=== PATIENT | female | born 1940 | race Caucasian/White ===

== ENCOUNTER 2019-10-20 12:54 | Emergency (ER) | payer MEDICARE, SELFPAY ==
[2019-10-20 12:55] VITALS: BP 144/84; PULSE 105; RESP 16; TEMP 36.5; O2SAT 98; BMI 20.7
--- NOTE | 2019-10-20 14:17 | RAD_ITS ---
STUDY: X-RAY - LEFT FOOT CLINICAL: Female, 79 years old. Fall, pain, bruising, swelling. TECHNIQUE: 3 view(s) of the foot. COMPARISON: None. FINDINGS: Normal talus, calcaneus, and tarsal bones. Normal visualized subtalar, talonavicular, calcaneocuboid, tarsal and tarsometatarsal articulations. There is demineralization of the metatarsi. There is degenerative arthrosis of the metatarsophalangeal joint of the hallux . Normal tibial and fibular sesamoid bones. Normal interphalangeal joint of the great toe. Normal phalanges of the great toe. Normal second through fifth metatarsophalangeal joints. Normal interphalangeal joints and phalanges of the lesser toes. The soft tissue structures are unremarkable. RAD/Foot min 3 Views IMPRESSION: No acute abnormality is seen. Electronically Signed: Jean-Claude Pascal, at 14:59 EST , Service support ,
--- NOTE | 2019-10-20 14:17 | RAD_ITS ---
STUDY: X-RAY - LEFT ANKLE REASON FOR EXAM: Female, 79 years old. Fall, pain, bruising, swelling. TECHNIQUE: 3 view(s) of the ankle. COMPARISON: None. FINDINGS: Normal visualized distal tibia and fibula. Normal medial and lateral malleoli. Normal tibiotalar articulation and ankle mortise. Normal visualized talus and calcaneus. The visualized subtalar, talonavicular, calcaneocuboid and tarsal articulations are normal. Soft tissue swelling. RAD/Ankle min 3 Views IMPRESSION: Soft tissue swelling. Electronically Signed: Jean-Claude Pascal, at 14:53 EST , Service support ,
--- NOTE | 2019-10-20 15:20 | ED.DCSUM_ITS ---
- ER Visit Summary Date of Service: 10/20/19 Chief Complaint: Left foot pain History of Present Illness: The patient is a 79 F who presents with left foot pain that began last night. Patient states she accidentally kicked a chair. Patient states that chair fell onto her left foot and caused her to fall. Patient states she has pain over the lateral aspect of the left foot and left ankle. Patient states the pain is worse with any movement or weightbearing. Patient describes the pain as aching and burning. Patient admits to some tingling in her toes when she moves her toes. Patient denies any other injuries. Physical Examination: Vital signs are stable. Patient is afebrile. Patient is in no acute distress. Musculoskeletal exam reveals tenderness, edema, and ecchymosis over the lateral aspect of the left foot and over the tip of the lateral malleolus. There is no bony crepitance or step-off. Range of motion was limited in all motions of the left foot secondary to pain. There is no laxity appreciated. Pedal pulses are equal bilaterally. Capillary refill was less than 2 seconds in all digits. Sensation was intact to light touch in all digits. Test Results: X-rays of the left foot and left ankle were obtained. There is no acute fracture. These were interpreted by the radiologist and myself. Emergency Department Course and Treatment: Patient was given a postop shoe. Patient was instructed to ice and elevate the left foot. Patient was instructed to take [id number] Tylenol or Motrin as needed for pain. Patient was instructed to follow-up with her primary care physician in 5 to 7 days. Patient understood and was agreeable with the plan. All questions were answered. Disposition: Discharge home Impression: Left foot contusion This note was generated with [employer] dictation software. It may contain incorrect words, spelling, and punctuation that were not noted in review of the chart prior to signing ED Disposition - Plan for ED Patient: Disposition: Home or Assisted Living Diagnosis: Contusion of left foot Instructions: CONTUSION, Foot Referrals: Jameson Jerez MD [Primary Care Provider] - 5-7 Days
[2019-10-20 15:43] VITALS: RESP 18
== END 2019-10-20 15:45 | disposition home or self-care (01) ==
PROVIDERS: Emergency Provider Emergency Medicine; PCP Family Medicine
DX: S90.32XA Contusion of left foot, initial encounter (principal); W20.8XXA Other cause of strike by thrown, projected or falling object, initial encounter; W22.03XA Walked into furniture, initial encounter; R05 Cough; C34.90 Malignant neoplasm of unspecified part of unspecified bronchus or lung; C79.31 Secondary malignant neoplasm of brain
CPT/HCPCS: 73610; 73630; 99283

== ENCOUNTER 2020-09-20 12:41 | Outpatient (RCR) | payer MEDICARE, SELFPAY | END 2020-09-20 23:59 | LOC: IMMUN 12:41 | PROVIDERS: PCP Family Medicine; Referring Provider Family Medicine; Visit Provider Family Medicine | DX: Z23 Encounter for immunization (principal) | CPT/HCPCS: 0011A; 0012A ==

== ENCOUNTER → 2021-01-07 07:26 | Outpatient (CLI) | payer MEDICARE, SELFPAY ==
[2021-01-07] VITALS (8 sets, daily range): BP systolic 125–148; BP diastolic 61–89; PULSE 96–101; RESP 16; TEMP 35.7–36.3; O2SAT 98–100; BMI 16.8
[2021-01-07] MEDS: 0.9% NaCl Peripheral Flush Adult/Peds IV (08:08)
== END ==
PROVIDERS: PCP Family Medicine; Referring Provider Internal Medicine Hematology & Oncology; Visit Provider Internal Medicine Hematology & Oncology
DX: D61.818 Other pancytopenia (principal)
CPT/HCPCS: 36430; 86644; 86850; 86900; 86901; 86920; 86922; J7040; P9016; A4216

== ENCOUNTER 2021-02-05 15:54 | Emergency (ER) | payer MEDICARE, SELFPAY ==
[2021-01-07 07:47] VITALS: BMI 16.8
[2021-02-05 15:55] VITALS: BP 162/107; PULSE 107; RESP 16; TEMP 36.3; O2SAT 97; BMI 17.2
[2021-02-05 15:58] VITALS: BP 162/107; PULSE 107; RESP 16; TEMP 36.3; O2SAT 97
--- NOTE | 2021-02-05 16:13 | EKG12_ITS ---
Test Reason : ABD. PAIN Blood Pressure : / mmHG Vent. Rate : 098 BPM Atrial Rate : 098 BPM P-R Int : 124 ms QRS Dur : 080 ms QT Int : 294 ms P-R-T Axes : 054 014 105 degrees QTc Int : 375 ms Sinus rhythm with Premature atrial complexes Anterior infarct , age undetermined Abnormal ECG Confirmed by JOSE MANUEL TODD, NATALY ([id number]), map editor PALOMO SINGH ([id number]) on 02/07/2021 8:39:00 AM Referred By: PATSY Confirmed By:NATALY RICHARD MD
--- NOTE | 2021-02-05 16:15 | EDS_ITS ---
HPI History of Present Illness Chief Complaint: Abd Pain Narrative Narrative: Patient presents with epigastric and left upper quadrant abdominal pain for the past few days. She has a history of stage IV lung cancer, she also has generalized weakness and she is not able to walk as much is normal. 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 She has no urinary symptoms. No recent fever or chills. She did not eat today but she did drink water. She has not had a bowel movement in about 4 days despite some stool softeners. [facility] Medical History (Updated 02/05/21 @ 18:[address] Ramakrishna Cheng MD) HTN (hypertension) Hypothyroid Lung cancer Home Medications gabapentin 400 mg PO TID 08/07/13 [History Last Taken 08/20/17 20:00] potassium chloride [Klor-Con M20] 20 meq PO TID 08/07/13 [History Last Taken 08/20/17 20:00] promethazine 25 mg PO Q8H PRN PRN 08/07/13 [History Last Taken Unknown] verapamil 240 mg PO DAILY 08/07/13 [History Last Taken 08/20/17 20:00] folic acid 1 mg PO DAILY 08/23/17 [History Last Taken Unknown] osimertinib 40 mg PO DAILY 10/20/19 [History Last Taken Unknown] oxycodone-acetaminophen [Percocet] 1 tab PO Q8H PRN 3 Days #10 tab 02/05/21 [Rx Last Taken Unknown] potassium chloride 20 meq PO BID #10 tab 02/05/21 [Rx Last Taken Unknown] Allergy/AdvReac Type Severity Reaction Status Date / Time levofloxacin [From Levaquin] Allergy Other Verified 02/05/21 15:57 omeprazole [From Prilosec] Allergy Itching Verified 02/05/21 15:57 omeprazole magnesium Allergy Itching Verified 02/05/21 15:57 [From Prilosec] Iafbodv-Xbb-Uum Reductase Allergy Other Verified 02/05/21 15:57 Inhibitor Social History Smoking Status: Never smoker ROS ROS ED ROS Narrative Past medical history: Reviewed, includes lung cancer, hypertension, GERD, hypercholesterolemia, osteoporosis, hypothyroidism Medications: Reviewed in the medical record including the [facility] medical record which was faxed to us Social history: Lives with and son Review of systems: All systems negative except as indicated General: No fever. Generalized weakness as in HPI Eyes: No visual changes ENT: No upper airway congestion, normal voice Neck: No neck pain Cardiovascular: No chest pain Respiratory: No shortness of breath or cough Gastrointestinal: Abdominal pain as in HPI. Constipation as in HPI Genitourinary: No dysuria Musculoskeletal: Denies myalgias. Skin: No rash, she thinks she is slightly more pale than normal Neurological: No memory loss, confusion or any focal weakness Psych: No recent behavioral changes Hematologic: Has a history of pancytopenia but no recent easy bleeding. EXAM Physical Exam Narrative Exam Narrative: Physical exam General: Patient appears chronically ill. Head: Normocephalic, Atraumatic, alopecia with the way Eyes: Conjunctiva not pale ENT: Slightly dry mucous membranes Neck: Supple, Nontender, No lymphadenopathy Cardiovascular: Regular rate, Regular rhythm Respiratory: No distress, speaks in full sentences coarse bilateral breath sounds Abdomen: Soft, there is epigastric and left upper quadrant abdominal pain. No mass palpated. No lower abdominal pain. No right upper quadrant pain. No guarding or rebound Back: Nontender, Normal Inspection. Negative for: CVA tenderness Extremities: Nontender, No edema Skin: Slight pallor Neurological: Alert, Normal Strength, Normal Sensation Psychological: Normal affect Const Vital Signs: 02/05/21 15:55 02/05/21 15:58 02/05/21 17:43 Temperature 97.4 F L 97.4 F L 98.3 F Temperature Source Temporal Temporal Temporal Pulse Rate 107 H 107 H 98 Respiratory Rate 16 16 24 H Blood Pressure 162/107 H 162/107 H 127/90 H Blood Pressure Mean 125 125 102 Pulse Ox 97 97 90 Oxygen Delivery Method Room Air Room Air Room Air Oxygen Flow Rate (L/min) 02/05/21 17:46 Temperature Temperature Source Pulse Rate Respiratory Rate Blood Pressure Blood Pressure Mean Pulse Ox 96 Oxygen Delivery Method Nasal Cannula Oxygen Flow Rate (L/min) 2 MDM MDM MDM Narrative Medical decision making narrative: Patient's work-up is consistent with metastatic disease, her pain improved. She is found to be hypokalemic, I gave her potassium in the ED and I will give her potassium for home otherwise I will discharge her in stable condition. I talked to her about her ability to cope at home she still has her and her son who can care for her, I told her there are options if she can no longer thrive in a home situation. She understands this. I also talked to her niece was at the bedside. Lab Data Labs: Laboratory Results - last 24 hr 02/05/21 02/05/21 16:09 16:09 WBC 10.1 RBC 4.52 Hgb 13.2 Hct 40.9 MCV 90.5 MCH 29.2 MCHC 32.3 RDW Std Deviation 48.0 H RDW Coeff of Aman 14.6 Plt Count 271 MPV 9.4 Immature Gran % (Auto) 0.500 Neut % (Auto) 86.0 H Lymph % (Auto) 5.1 L Cannon % (Auto) 7.8 Eos % (Auto) 0.2 Baso % (Auto) 0.4 Absolute Neuts (auto) 8.7 H Absolute Lymphs (auto) 0.51 L Nucleated RBC % 0 Differential Comment Platelet Estimate ADEQUATE RBC Morphology NORM C+C Sodium 134 L Potassium 2.8 L Chloride 90 L Carbon Dioxide 35.0 H Anion Gap 9 BUN 17 Creatinine 0.84 Estim Creat Clear Calc 35.95 Est GFR (MDRD) Af Amer 84 Est GFR (MDRD) Non-Af 69 BUN/Creatinine Ratio 20.2 H Glucose 114 H Calcium 10.0 Total Bilirubin 0.40 AST 20 ALT 13 Alkaline Phosphatase 134 H Total Protein 7.4 Albumin 2.9 L Globulin 4.5 H Albumin/Globulin Ratio 0.6 L Radiography Diagnostic Testing: Radiology Impression Abdomen/Pelvis CT 02/05/21 16:55 IMPRESSION: 1. Extensive left hemithorax disease, postsurgical changes, possibly loculated left pleural effusion versus lesions etc. 2. No acute abdominal findings. 3. Left hepatic lobe biliary dilation, refer to further biliary specific imaging such as CT liver with IV contrast, MR, etc. 4. Hepatic lesions, incompletely characterized, these can be further assessed at the time of hepatic imaging. Most probably metastases. Electronically Signed: Emmie Soria MD at 17:35 EDT Tel , Service support , Discharge Plan Triage Chief Complaint: Abd Pain ED Provider: Ramakrishna Cheng Dx/Rx/DC Orders Clinical Impression: Abdominal pain Instructions: ED Abdominal Pain Unkn Cause Fem Prescriptions: New oxycodone-acetaminophen [Percocet] 5-325 mg tablet 1 tab PO Q8H PRN (Reason: pain) 3 Days Qty: 10 RF: 0 potassium chloride 20 mEq tablet extended release 20 meq PO BID Qty: 10 RF: 0 No Action gabapentin 400 MG capsule 400 mg PO TID RF: 0 potassium chloride [Klor-Con M20] 20 MEQ tablet 20 meq PO TID RF: 0 promethazine 25 MG tablet 25 mg PO Q8H PRN PRN (Reason: Nausea) RF: 0 verapamil 240 MG tablet extended release 240 mg PO DAILY RF: 0 folic acid 1 MG tablet 1 mg PO DAILY RF: 0 osimertinib 40 mg tablet 40 mg PO DAILY RF: 0 Primary Care Provider: Jameson Jerez Referrals: Jameson Jerez MD [Primary Care Provider] - 2 Days Disposition Disposition: Home, self care
[2021-02-05] MEDS: Ondansetron 4 MG/2 ML Vial IV (16:30)
[2021-02-05] MEDS: Morphine 2 MG/ML Syringe IV (16:30)
[2021-02-05 16:31] LABS: Absolute Lymphocyte Count 0.51 X10^3/uL (0.83-4.51); Absolute Neutrophil Count 8.7 X10^3/uL (2.0-7.7); Basophil# 0.04 X10^3/uL; Basophil% 0.4 % (0-1); Eosinophil# 0.02 X10^3/uL; Eosinophils% 0.2 % (0-5); Hematocrit 40.9 % (37-47); Hemoglobin 13.2 g/dL (12.0-15.0); Lymphocyte # 0.51 X10^3/ul (0.83-4.51); Lymphocyte % 5.1 % (19-41); Mean Corp Hgb Conc 32.3 g/dL (32-36); Mean Corpuscular Hgb 29.2 pg (27.0-32.0); Mean Corpuscular Volume 90.5 fL (81-99); Mean Platelet Vol. 9.4 fl (6.2-12.0); Monocyte# 0.78 X10^3/uL; Monocyte% 7.8 % (0-10); NRBC Flagged by Analyzer 0 % (0-5); Neutrophil # 8.65 X10^3/uL (2.7-7.7); POSITIVE DIFFERENTIAL YES; Platelet Count 271 K/mm3 (150-450); RBC Distribution Width CV 14.6 % (11.6-14.6); Red Blood Count 4.52 M/mm3 (4.2-5.4); White Blood Count 10.1 K/mm3 (4.4-11.0)
[2021-02-05 16:36] LABS: Differential Indicated SCAN CRITERIA MET
[2021-02-05 16:41] LABS: ALB/GLOB Ratio 0.6 RATIO (0.9-2.4); AST(SGOT) 20 U/L (15-37); Alanine Aminotransfer ALT/SGPT 13 U/L (13-56); Albumin, Serum 2.9 g/dL (3.2-5.0); Alkaline Phosphatase 134 U/L (45-117); Anion Gap 9 (5-15); BUN 17 mg/dL (7-18); BUN/Creat Ratio 20.2 RATIO (10-20); Chloride 90 mmol/L (98-107); Creatinine, Serum 0.84 mg/dL (0.55-1.02); EST Glomerular Filtration Rate 69 mL/min (>60); Est Glom Filt Rate - Afr Amer 84 mL/min (>60); Estimated Creatinine Clearance 35.95 ml/min; Globulin 4.5 g/dL (2.2-4.2); Glucose 114 mg/dL (74-106); Potassium 2.8 mmol/L (3.5-5.1); Protein, Total 7.4 g/dL (6.4-8.2); Sodium Level 134 mmol/L (136-145)
--- NOTE | 2021-02-05 16:55 | CT_ITS ---
STUDY: CT ABDOMEN AND PELVIS WITHOUT CONTRAST REASON FOR EXAM: Female, 80 years old. Abdominal pain RADIATION DOSAGE (If Supplied By Facility): CTDIvol = ( 6.04 ) mGy, DLP = ( 333.75 ) mGycm TECHNIQUE: Transaxial images were obtained from the dome of the diaphragm to the symphysis pubis without oral contrast, and without intravenous contrast. Sagittal and coronal images were reconstructed. Individualized dose optimization techniques were used for this CT. COMPARISON: None. FINDINGS: Examination is limited due to lack of IV contrast. Diagnostic information is available. Assessment for neoplastic/metastatic and vascular disease is limited. There are extensive changes in the left lung with pleural effusion and/or pleural lesions and atelectasis. There are small bilateral pleural effusions. Right lung is atelectatic. There are possibly postradiation changes in the left chest wall and breast. There is moderate pericardial effusion. Gallbladder is removed. There are multiple hypodense hepatic lesions.. There is moderate intrahepatic biliary dilation in the left hepatic lobe and in the extrahepatic common bile duct, incompletely characterized. Spleen and pancreas are normal. Pancreatic head is suboptimally visualized. Adrenals are normal. There is no hydronephrosis. There is a 2 mm left renal upper pole calyceal nonobstructing stone. Bladder is normal. Uterus is not well seen, either resected or involuted. There is no intestinal obstruction. Osseous structures are intact. CT/Abdomen/Pelvis without Cont IMPRESSION: 1. Extensive left hemithorax disease, postsurgical changes, possibly loculated left pleural effusion versus lesions etc. 2. No acute abdominal findings. 3. Left hepatic lobe biliary dilation, refer to further biliary specific imaging such as CT liver with IV contrast, MR, etc. 4. Hepatic lesions, incompletely characterized, these can be further assessed at the time of hepatic imaging. Most probably metastases. Electronically Signed: Emmie Soria MD at 17:35 EDT Tel , Service support ,
[2021-02-05 17:06] LABS: Platelet Estimate ADEQUATE (ADEQ); Red Cell Morphology NORM C+C NORMAL (NORM C&C)
[2021-02-05] MEDS: Morphine 4 MG/ML Syringe IV (17:39)
[2021-02-05 17:43] VITALS: BP 127/90; PULSE 98; RESP 24; TEMP 36.8; O2SAT 90
[2021-02-05 17:46] VITALS: O2SAT 89; O2SAT 96
[2021-02-05] MEDS: Potassium Chloride Oral Soln 20 MEQ/15 ML UDC 40 MEQ PO (17:49)
[2021-02-05] MEDS: Mag Hydrox/Al Hydrox/Simeth 30 ML UDC PO (17:59)
[2021-02-05 18:43] VITALS: BP 146/88; PULSE 101; RESP 24; O2SAT 100
== END 2021-02-05 18:53 | disposition home or self-care (01) ==
PROVIDERS: Emergency Provider Emergency Medicine; PCP Family Medicine
DX: R10.12 Left upper quadrant pain (principal); K76.9 Liver disease, unspecified; E87.6 Hypokalemia; E78.00 Pure hypercholesterolemia, unspecified; K21.9 Gastro-esophageal reflux disease without esophagitis; E03.9 Hypothyroidism, unspecified; M81.0 Age-related osteoporosis without current pathological fracture; C34.90 Malignant neoplasm of unspecified part of unspecified bronchus or lung; I10 Essential (primary) hypertension
CPT/HCPCS: 74176; 80053; 85025; 93005; 96374; 96375; 96376; 99283; J7040; A4216; J2405

== ENCOUNTER 2021-02-09 13:56 | Emergency (ER) | payer MEDICARE, SELFPAY ==
[2021-02-09] VITALS (11 sets, daily range): BP systolic 163–202; BP diastolic 105–130; PULSE 98–110; RESP 22–34; TEMP 36.2–37.3; O2SAT 92–96; BMI 17.9
--- NOTE | 2021-02-09 14:20 | CT_ITS ---
STUDY: CT ABDOMEN AND PELVIS WITH CONTRAST REASON FOR EXAM: Female, 80 years old. No BM for 1 week, worsening LUQ pain from prior CT -- IV PO Contrast RADIATION DOSAGE (If Supplied By Facility): CTDIvol = ( 9.63 ) mGy, DLP = ( 466.70 ) mGycm TECHNIQUE: Transaxial images were obtained from the dome of the diaphragm to the symphysis pubis with oral contrast. IV 75mL [id number]-[id number] was administered. Sagittal and coronal images were reconstructed. Individualized dose optimization techniques were used for this CT. COMPARISON: 02/05/2021 FINDINGS: Base of the chest described on chest CT, performed concurrently. Multiple low-density cystic lesions of the liver are unchanged and are visible on prior CT of 2017, favoring benign simple cysts. Gallbladder is surgically absent. Biliary dilation is similar since the prior study, however, degree of dilation has increased since [address] Normal spleen. Normal pancreas. Normal bilateral adrenal glands. No hydronephrosis. Nonobstructing left renal calculus. Normal visualized stomach. Normal small intestine. Moderate fecal retention throughout the colon without colon wall thickening. There is non-visualization of the appendix. There is diffuse atherosclerotic calcification of the abdominal aorta, without a demonstrated aneurysm. Normal inferior vena cava. Normal retroperitoneum. Mildly distended urinary bladder. There is atrophy of the uterus. There is a small umbilical hernia containing fat. No destructive bony process. CT/Abdomen/Pelvis WITH Contrast IMPRESSION: 1. Similar intrahepatic and extrahepatic bile duct dilation (but increased since 2017). Recommend correlating with laboratory/bilirubin values. MRCP recommended if clinically appropriate to exclude a distal/ampullary biliary obstruction. 2. Moderate fecal retention. Electronically Signed: Kurtis Bush MD ([place]) at 17:07 EDT , Service support ,
--- NOTE | 2021-02-09 14:24 | EX.ED.DYSGE1 ---
HPI History of Present Illness Chief Complaint: General Illness Informant: patient and family Narrative Narrative: Patient is a 80-year-old female with a past medical history of lung cancer with metastasis who presents to the emerge part for left upper quadrant abdominal pain and constipation. She has been feeling generally weak. She was seen for the same complaint a few days prior. Patient has been taking medications to help her move her bowels but still has not. Her last bowel movement was 1 week ago. She states she has still been passing gas. She denies any nausea or vomiting. No fevers or chills. She does have some left-sided chest pain as well. She is actually supposed to start gamma knife therapy this coming Wednesday. She was previously on chemo. She denies any urinary symptoms. The family at bedside states she has not been eating or drinking very well but the patient believes she has been. [facility] Medical History (Updated 02/09/21 @ 20:[address] Thom Buenrostro, ) HTN (hypertension) Hypothyroid Lung cancer Home Medications gabapentin 200 mg PO TID 08/07/13 [History Last Taken 08/20/17 20:00] potassium chloride [Klor-Con M20] 20 meq PO TID 08/07/13 [History Last Taken 08/20/17 20:00] promethazine 25 mg PO Q8H PRN PRN 08/07/13 [History Last Taken Unknown] verapamil 240 mg PO DAILY 08/07/13 [History Last Taken 08/20/17 20:00] osimertinib 40 mg PO DAILY 10/20/19 [History Last Taken Unknown] oxycodone-acetaminophen [Percocet] 1 tab PO Q8H PRN 3 Days #10 tab 02/05/21 [Rx Last Taken Unknown] sennosides-docusate sodium [Stimulant Laxative Plus] PO BID PRN 02/09/21 [History Last Taken Unknown] Allergy/AdvReac Type Severity Reaction Status Date / Time levofloxacin [From Levaquin] Allergy Other Verified 02/05/21 15:57 omeprazole [From Prilosec] Allergy Itching Verified 02/05/21 15:57 omeprazole magnesium Allergy Itching Verified 02/05/21 15:57 [From Prilosec] Bxvwqfe-Hgd-Vat Reductase Allergy Other Verified 02/05/21 15:57 Inhibitor Social History Smoking Status: Never smoker ROS ROS ED Constitutional Constitutional ED: Reports other Details: Generalized weakness ; Denies chills or fever(s) Eyes Eyes: Denies change in vision ENT ENT ED: Denies epistaxis or rhinorrhea Cardiovascular Cardiovascular: Reports chest pain; Denies palpitations Respiratory/Chest Respiratory/Chest: Reports dyspnea; Denies cough Gastrointestinal Gastrointestinal: Reports abdominal pain and constipation; Denies diarrhea, melena, nausea or vomiting Genitourinary Genitourinary ED: Denies dysuria, hematuria or urinary frequency Musculoskeletal Musculoskeletal: Reports back pain; Denies neck pain Integumentary Denies rash Neurologic Neurologic: Denies dizziness, headache(s) or weakness EXAM Physical Exam Const Vital Signs: 02/09/21 13:58 02/09/21 14:02 02/09/21 15:02 Temperature 99.1 F 99.1 F 97.6 F L Temperature Source Temporal Temporal Temporal Pulse Rate 110 H 110 H 98 Respiratory Rate 22 H 22 H 27 H Blood Pressure 163/117 H 163/117 H 202/118 H Blood Pressure Mean 132 132 146 Pulse Ox 95 95 94 Oxygen Delivery Method Room Air Room Air 02/09/21 15:09 02/09/21 16:23 02/09/21 17:00 Temperature 97.8 F 98.1 F Temperature Source Oral Temporal Pulse Rate 102 H 99 103 H Respiratory Rate 28 H 25 H 22 H Blood Pressure 192/112 H 175/113 H 189/130 H Blood Pressure Mean 138 133 149 Pulse Ox 96 95 96 Oxygen Delivery Method Room Air 02/09/21 18:00 02/09/21 19:00 02/09/21 20:00 Temperature 97.8 F 97.1 F L Temperature Source Temporal Temporal Pulse Rate 104 H 106 H 106 H Respiratory Rate 25 H 22 H 34 H Blood Pressure 177/107 H 176/110 H 200/105 H Blood Pressure Mean 130 132 136 Pulse Ox 96 95 92 Oxygen Delivery Method Room Air Room Air 02/09/21 20:55 02/09/21 21:05 Temperature 98.5 F 98.5 F Temperature Source Oral Pulse Rate 106 H 106 H Respiratory Rate 22 H 25 H Blood Pressure 193/113 H 193/113 H Blood Pressure Mean 139 139 Pulse Ox 93 94 Oxygen Delivery Method Room Air Positive well nourished and well developed General Appearance ED: well developed and NAD HEENT Reports normocephalic, head/scalp atraumatic and moist mucous membranes Eyes PERRL and EOMs intact bilaterally Neck supple General: Negative for tenderness Chest Wall inspection of chest normal Resp normal respiratory effort and clear to auscultation bilaterally Auscultation: Negative for rales, rhonchi or wheezes Cardio regular rhythm and no murmurs Rate: tachycardic GI normal to inspection, nondistended, normoactive bowel sounds Palpation: soft and tender LUQ; Negative for guarding or rebound tenderness present Back/Spine no CVA tenderness Extremity normal to inspection General Extremety ED: Negative for edema or tenderness General Extremity: Negative for edema Neuro CN's II-XII intact bilaterally and no sensory deficits noted Sensorium / Orientation: alert Motor Exam: strength 5/5 throughout Psych mental status grossly normal Skin no rashes or lesions noted MDM MDM MDM Narrative Medical decision making narrative: Patient presents to the emergency department for left upper quadrant abdominal pain. She was seen in the ED for same complaint a few days prior. She has not had a bowel movement. Upon arrival to the emergency department she is mildly tachycardic. She is hypertensive. Will repeat basic lab work. Previous CT scan was performed without contrast so we will do this with IV and oral contrast to evaluate for any signs of obstruction. She is started on some IV fluids. She is given a dose of morphine. She understands opioids could be making her constipation worse. After I did my physical exam patient started to have chest pain going up the left side into her left arm. EKG was obtained which did not show any signs of ischemia or arrhythmia. CT scan of the chest and troponin has been added. Patient CT scan did show a likely mass. There was also evidence of a segmental PE. She does have a pericardial effusion. This is larger than her previous scan which was just performed 4 days prior. Given patient's multiple issues she will need to be transferred due to no cardiothoracic surgery here. They are requesting transfer to [facility] as this is where she has been seen previously. Patient has required multiple doses of pain medication throughout ED stay given her pain. I did speak with multiple physicians at the [facility]. I initially spoke to the critical care team who did not think she required ICU level care given the fact she has no signs of tamponade. She is actually been hypertensive throughout ED stay. I also spoke to the copyholder who was willing to do the thoracentesis but did not want to be the primary doctor. I then spoke to the oncologist who is willing to accept the patient. They are agreeable with her being transferred at this time. She otherwise has remained stable throughout ED stay. She has not been hypoxic. She has not had any significant increased work of breathing. I did discuss starting heparin with the multiple doctors who felt that this should be held off at this time until she gets to their site. The initial physicians were concerned about the masses in her brain bleeding. The oncologist was concerned about her pericardial tamponade being on heparin. So we will hold off on this time and defer to them for starting anticoagulation. At time of discharge patient is stable. Did discuss the rest of the findings with the doctors. Imaging and lab work was discussed with the patient and the patient's niece at bedside. Lab Data Labs: Laboratory Results - last 24 hr 02/09/21 02/09/21 02/09/21 14:49 14:49 14:49 WBC 6.7 RBC 4.01 L Hgb 12.0 Hct 37.0 MCV 92.3 MCH 29.9 MCHC 32.4 RDW Std Deviation 51.4 H RDW Coeff of Aman 15.1 H Plt Count 228 MPV 9.7 Immature Gran % (Auto) 0.200 Neut % (Auto) 87.1 H Lymph % (Auto) 5.4 L Mcnairy % (Auto) 6.8 Eos % (Auto) 0.2 Baso % (Auto) 0.3 Absolute Neuts (auto) 5.8 Absolute Lymphs (auto) 0.36 L Nucleated RBC % 0 Differential Comment SCANNED Diff Path Review May foll Hypersegmented Neuts 1+ H APTT Sodium 133 L Potassium 4.1 Chloride 94 L Carbon Dioxide 30.0 Anion Gap 9 BUN 18 Creatinine 0.83 Estim Creat Clear Calc 37.94 Est GFR (MDRD) Af Amer 85 Est GFR (MDRD) Non-Af 70 BUN/Creatinine Ratio 21.7 H Glucose 103 Calcium 9.8 Total Bilirubin 0.40 AST 26 ALT 15 Alkaline Phosphatase 131 H Troponin I < 0.015 B-Natriuretic Peptide Total Protein 6.9 Albumin 2.7 L Globulin 4.2 Albumin/Globulin Ratio 0.6 L Lipase 26 L Urine Color Urine Clarity Urine pH Ur Specific [place] Urine Protein Urine Glucose (UA) Urine Ketones Urine Occult Blood Urine Nitrite Urine Bilirubin Urine Urobilinogen Ur Leukocyte Esterase Urine RBC Urine WBC Ur Squamous Epith Cells Urine Bacteria Urine Mucus 02/09/21 02/09/21 02/09/21 14:49 18:45 20:00 WBC RBC Hgb Hct MCV MCH MCHC RDW Std Deviation RDW Coeff of Aman Plt Count MPV Immature Gran % (Auto) Neut % (Auto) Lymph % (Auto) [place] % (Auto) Eos % (Auto) Baso % (Auto) Absolute Neuts (auto) Absolute Lymphs (auto) Nucleated RBC % Differential Comment Diff Path Review Hypersegmented Neuts APTT 33.7 Sodium Potassium Chloride Carbon Dioxide Anion Gap BUN Creatinine Estim Creat Clear Calc Est GFR (MDRD) Af Amer Est GFR (MDRD) Non-Af BUN/Creatinine Ratio Glucose Calcium Total Bilirubin AST ALT Alkaline Phosphatase Troponin I B-Natriuretic Peptide 84.5 Total Protein Albumin Globulin Albumin/Globulin Ratio Lipase Urine Color Straw Urine Clarity Clear Urine pH 7.0 Ur Specific [place] 1.010 Urine Protein 15 H Urine Glucose (UA) Normal Urine Ketones 15 H Urine Occult Blood Negative Urine Nitrite Negative Urine Bilirubin Negative Urine Urobilinogen Normal Ur Leukocyte Esterase Negative Urine RBC 0 SEEN Urine WBC 0 SEEN Ur Squamous Epith Cells 0 SEEN Urine Bacteria 0 SEEN Urine Mucus 0 SEEN Radiography Diagnostic Testing: Radiology Impression Abdomen/Pelvis CT 02/09/21 14:20 IMPRESSION: 1. Similar intrahepatic and extrahepatic bile duct dilation (but increased since 2017). Recommend correlating with laboratory/bilirubin values. MRCP recommended if clinically appropriate to exclude a distal/ampullary biliary obstruction. 2. Moderate fecal retention. Electronically Signed: Kurtis Bush MD ([place]) at 17:07 EDT , Service support , Chest CTA 02/09/21 15:53 IMPRESSION: 1. Right middle lobe segmental pulmonary embolism. 2. Pericardial effusion has increased in volume since recent abdomen/pelvis CT of 02/15/2021. 3. Masslike consolidation of the posterior right upper lobe crossing the fissure into the superior segment right lower lobe (new since 2017). Neoplasm is a primary consideration although infection would also be in the differential diagnosis. 4. Peribronchial and parenchymal consolidation of the lingula and left lower lobe could represent infection/pneumonia. 5. Bilateral pleural effusions with loculations on the left side. 6. Left upper lobectomy. 7. Left hilar and mediastinal adenopathy. Electronically Signed: Kurtis Bush MD ([place]) at 17:01 EDT , Service support , EKG Initial EKG: Attestation: I personally reviewed and interpreted this EKG as follows: (Rate of 103 bpm in sinus tachycardia. Normal intervals. Normal axis. No significant ST elevations or depressions. No T wave abnormalities.) Discharge Plan Triage Chief Complaint: General Illness ED Provider: Thom Buenrostro Dx/Rx/DC Orders Clinical Impression: Pulmonary embolism, Pericardial effusion, Lung mass, Constipation Prescriptions: No Action gabapentin 400 MG capsule 200 mg PO TID RF: 0 potassium chloride [Klor-Con M20] 20 MEQ tablet 20 meq PO TID RF: 0 promethazine 25 MG tablet 25 mg PO Q8H PRN PRN (Reason: Nausea) RF: 0 verapamil 240 MG tablet extended release 240 mg PO DAILY RF: 0 osimertinib 40 mg tablet 40 mg PO DAILY RF: 0 oxycodone-acetaminophen [Percocet] 5-325 mg tablet 1 tab PO Q8H PRN (Reason: pain) 3 Days Qty: 10 RF: 0 sennosides-docusate sodium [Stimulant Laxative Plus] 8.6-50 mg tablet PO BID PRN (Reason: Constipation) RF: 0 Primary Care Provider: Jameson Jerez Referrals: Jameson Jerez MD [Primary Care Provider] - Disposition Disposition: Acute Care Hospital Discharge Location: [facility]
[2021-02-09 14:55] LABS: Absolute Lymphocyte Count 0.36 X10^3/uL (0.83-4.51); Absolute Neutrophil Count 5.8 X10^3/uL (2.0-7.7); Basophil# 0.02 X10^3/uL; Basophil% 0.3 % (0-1); Eosinophil# 0.01 X10^3/uL; Eosinophils% 0.2 % (0-5); Lymphocyte # 0.36 X10^3/ul (0.83-4.51); Lymphocyte % 5.4 % (19-41); Mean Corp Hgb Conc 32.4 g/dL (32-36); Mean Corpuscular Hgb 29.9 pg (27.0-32.0); Mean Corpuscular Volume 92.3 fL (81-99); Mean Platelet Vol. 9.7 fl (6.2-12.0); Monocyte# 0.45 X10^3/uL; Monocyte% 6.8 % (0-10); NRBC Flagged by Analyzer 0 % (0-5); Neutrophil % 87.1 % (47-70); POSITIVE DIFFERENTIAL YES; Platelet Count 228 K/mm3 (150-450); RBC Distribution Width CV 15.1 % (11.6-14.6); RBC Distribution Width SD 51.4 fl (35.1-43.9); Red Blood Count 4.01 M/mm3 (4.2-5.4); White Blood Count 6.7 K/mm3 (4.4-11.0)
--- NOTE | 2021-02-09 14:55 | ED.RN ---
sudden onset of pain under left breast radiating up through left shoulder down through arm with mild sob. ekg ordered. placed on monitor. notified
[2021-02-09 14:58] LABS: Differential Indicated SCAN CRITERIA MET
[2021-02-09] MEDS: Morphine 4 MG/ML Syringe IV (15:08)
[2021-02-09 15:17] LABS: ALB/GLOB Ratio 0.6 RATIO (0.9-2.4); AST(SGOT) 26 U/L (15-37); Alanine Aminotransfer ALT/SGPT 15 U/L (13-56); Albumin, Serum 2.7 g/dL (3.2-5.0); Alkaline Phosphatase 131 U/L (45-117); Anion Gap 9 (5-15); BUN 18 mg/dL (7-18); BUN/Creat Ratio 21.7 RATIO (10-20); Calcium,Total 9.8 mg/dL (8.5-10.1); Chloride 94 mmol/L (98-107); Creatinine, Serum 0.83 mg/dL (0.55-1.02); EST Glomerular Filtration Rate 70 mL/min (>60); Est Glom Filt Rate - Afr Amer 85 mL/min (>60); Estimated Creatinine Clearance 37.94 ml/min; Globulin 4.2 g/dL (2.2-4.2); Glucose 103 mg/dL (74-106); Lipase 26 U/L (73-393); Potassium 4.1 mmol/L (3.5-5.1); Protein, Total 6.9 g/dL (6.4-8.2); Sodium Level 133 mmol/L (136-145)
--- NOTE | 2021-02-09 15:32 | EKG12_ITS ---
Test Reason : PAIN Blood Pressure : / mmHG Vent. Rate : 103 BPM Atrial Rate : 103 BPM P-R Int : 126 ms QRS Dur : 074 ms QT Int : 320 ms P-R-T Axes : 046 003 070 degrees QTc Int : 419 ms Sinus tachycardia Nonspecific T wave abnormality Abnormal ECG Confirmed by JOSE MANUEL TODD, NATALY ([id number]), state editor ENE DE LEON ([id number]) on 02/13/2021 9:44:52 AM Referred By: CALI Confirmed By:NATALY RICHARD MD
--- NOTE | 2021-02-09 15:53 | CT_ITS ---
STUDY: CTA CHEST REASON FOR EXAM: Female, 80 years old. L CP, hx of CA, eval for PE RADIATION DOSAGE (If Supplied By Facility): CTDIvol = ( 9.63 ) mGy, DLP = ( 466.70 ) mGycm TECHNIQUE: The examination was performed with the intravenous administration of IV 75mL Isovue-370. Post-processing of the angiographic images was performed, with multiplanar reformation and 3D reconstruction. Individualized dose optimization techniques were used for this CT. COMPARISON: 08/21/2017 02/05/2021 FINDINGS: Normal enhancement of the main pulmonary artery and right and left pulmonary arteries. There is a filling defect in the right middle lobe segmental (lateral) artery on image 85 of series 2. There is no demonstrated pulmonary embolism. Normal thoracic aorta and visualized great vessels. There is no demonstrated aortic dissection. There is a moderate to large volume pericardial effusion, new since prior chest CT and increased in volume as compared to abdomen/pelvis CT of 02/15/2021. Adenopathy of the subcarinal mediastinum with AP diameter measuring up to 1.7 cm. Left hilar adenopathy is not well characterized. Normal hilar regions. Bronchiectasis noted. The lungs are well expanded. Left upper lobectomy with surgical clips in the left hilum masslike consolidation of the posterior right upper lobe with adjacent dilated bronchi/bronchiectasis extends into the superior segment of the right lower lobe (images 126-113 measuring approximately 2.9 x 4.3 cm. Axially peribronchial and parenchymal consolidation involving the lingula and left lower lobe.. Small right pleural effusion. Small to moderate size left pleural effusion with lobulated border suggesting loculations. Normal chest wall structures. Normal osseous structures. Upper abdomen described on abdomen/pelvis CT performed concurrently. CT/CTA Chest W/WO Contrast IMPRESSION: 1. Right middle lobe segmental pulmonary embolism. 2. Pericardial effusion has increased in volume since recent abdomen/pelvis CT of 02/15/2021. 3. Masslike consolidation of the posterior right upper lobe crossing the fissure into the superior segment right lower lobe (new since 2017). Neoplasm is a primary consideration although infection would also be in the differential diagnosis. 4. Peribronchial and parenchymal consolidation of the lingula and left lower lobe could represent infection/pneumonia. 5. Bilateral pleural effusions with loculations on the left side. 6. Left upper lobectomy. 7. Left hilar and mediastinal adenopathy. Electronically Signed: Kurtis Bush MD ([place]) at 17:01 EDT , Service support ,
[2021-02-09 15:58] LABS: Differential Comment SCANNED
[2021-02-09 15:59] LABS: Hypersegmented Neutrophils 1+
[2021-02-09] MEDS: HYDROmorphone 0.5 MG/0.5 ML SYRINGE IV (16:32)
[2021-02-09 19:05] LABS: Partial Thromboplast Time 33.7 Seconds (24.1-36.2)
[2021-02-09 19:42] LABS: BNP,B-Type NATRIURETIC PEPTIDE 84.5 pg/mL (0-100)
[2021-02-09 20:05] LABS: Bacteria 0 SEEN /hpf (None Seen); Color, Urine Straw (Yellow); Glucose, Dipstick Normal (Normal); Ketone-Dipstick 15 mg/dl (Negative); Leukocyte Esterase-Dipstick Negative /ul (Negative); Mucous, Urine 0 SEEN /hpf (<or=2+); Nitrite-Dipstick Negative (Negative); Occult Blood-Urine Negative /ul (Negative); Protein-Dipstick 15 mg/dl (Negative); Red Blood Cells-Urine 0 SEEN /hpf (0-5); Squamous Epithelial Cells - UA 0 SEEN /hpf (5-10); Urine Bilirubin Dipstick Negative (Negative); Urine Clarity Clear (Clear); Urine Urobilinogen Normal (Normal); White Blood Cells 0 SEEN /hpf (0-5)
[2021-02-09] MEDS: HYDROmorphone 1 MG/ML Syringe IV (20:49)
--- NOTE | 2021-02-09 21:17 | ED.RN ---
2100: attempted to call nurse report to CC. nurse unavailable at this time and when call back
[2021-02-10 13:57] LABS: Pathologist Review Reviewed
== END 2021-02-09 21:41 | disposition short-term general hospital (02) ==
PROVIDERS: Emergency Provider Emergency Medicine; PCP Family Medicine
DX: I26.99 Other pulmonary embolism without acute cor pulmonale (principal); K59.00 Constipation, unspecified; I31.3 Pericardial effusion (noninflammatory); R91.8 Other nonspecific abnormal finding of lung field; Z92.21 Personal history of antineoplastic chemotherapy; Z85.118 Personal history of other malignant neoplasm of bronchus and lung; I10 Essential (primary) hypertension; E03.9 Hypothyroidism, unspecified; J90 Pleural effusion, not elsewhere classified; Z79.899 Other long term (current) drug therapy; R06.00 Dyspnea, unspecified
CPT/HCPCS: 71275; 74177; 80053; 81001; 83690; 83880; 84484; 85025; 85730; 87426; 93005; 96374; 96375; 96376; 99285; Q9967; A4216